=== PATIENT | male | born 1985 | race Caucasian/White ===

== ENCOUNTER 2018-03-22 05:51 | Emergency (ER) | payer OTHER ==
[2018-03-22] MEDS ORDERED: Sodium Chloride 0.9% 10 ML Syringe FLUSH PRN (06:18)
[2018-03-22] MEDS ORDERED: Morphine 4 MG/ML Syringe IVPUSH PRN (06:18)
[2018-03-22] MEDS ORDERED: Sodium Chloride 0.9% 1,000 ML IV ONE (06:18)
[2018-03-22] MEDS ORDERED: Ketorolac 30 MG/ML SDV IVPUSH ONE (06:18)
--- NOTE | 2018-03-22 06:26 | EDM.PDOC ---
<Eleazar Burk A - Last Filed: 03/22/18 06:34> ED HPI GENERAL MEDICAL PROBLEM - General Chief Complaint: Back Pain or Injury Stated Complaint: VOMMITING BLOOD RIGHT SIDE BACK PAIN AND IN TEST Time Seen by Provider: 03/22/18 05:58 Source of Information: Reports: Patient History Limitations: Reports: No Limitations - History of Present Illness INITIAL COMMENTS - FREE TEXT/NARRATIVE: 32 y/o M with fever, R flank pain, cough, and myalgias. States he's been feeling ill x 1 day. Symptoms started fairly suddenly yesterday. His main complaint is R flank pain, sharp, severe, radiates towards his groin, worse with movement, better when lying still. No provoking factor. No hx similar symptoms previously. Pain is currently severe. Hasn't taken anything for pain. He does do heavy lifting at his work in the [employer] but doesn't recall an injury. He also states that he is urinating less than usual and his urine has an odd smell to it. No actual dysuria or hematuria. Also has pain in his testicles. No scrotal swelling. No penile discharge. Pain is moderate. Also has cough, productive of blood tinged sputum x 1 day. No SOB. Mild substernal chest discomfort with inspiration. No lower extremity swelling or pain. right flank/throat/testicles Pain Score (Numeric/FACES): 8 - Related Data Allergies Allergy/AdvReac Type Severity Reaction Status Date / Time No Known Allergies Allergy Verified 03/22/18 06:06 Home Meds: Home Meds Orphenadrine [Norflex] 1 tab PO Q12H PRN #10 tab.er 03/22/18 [Rx] Past Medical History - Past Health History Medical/Surgical History: Denies Medical/Surgical History Social & Family History - Family History Family Medical History: Noncontributory - Tobacco Use Smoking Status *Q: Never Smoker Second Hand Smoke Exposure: No - Caffeine Use Caffeine Use: Reports: None - Recreational Drug Use Recreational Drug Use: No ED EXAM, UPPER BACK/NECK PAIN - Physical Exam Exam: See Below Exam Limited By: No Limitations General Appearance: Alert, WD/WN, Moderate Distress Eye Exam: Bilateral Eye: Normal Inspection Ears Exam: Normal External Exam Nose Exam: Normal Inspection Throat/Mouth Exam: Normal Inspection, Normal Oropharynx, Normal Voice, No Airway Compromise Head Exam: Atraumatic, Normocephalic Neck Exam: Full Range of Motion Cardiovascular/Respiratory: Regular Rate, Rhythm, Normal Peripheral Pulses, Normal Breath Sounds, No Respiratory Distress GI/Abdominal: Soft, Non-Tender, No Distention. No: Rebound (Male) Exam: Normal Inspection, Circumcised, Scrotum Tenderness (L), Scrotum Tenderness (R), Testicular Tenderness (L), Testicular Tenderness (R). No: Scrotal Swelling, Urethral Discharge Back Exam: Normal Inspection, CVA Tenderness (R), Other (skin normal, no palpable mass). No: CVA Tenderness (L), Vertebral Tenderness Extremities: Normal Inspection Neurologic: No Motor/Sensory Deficits, Alert, Normal Mood/Affect, Oriented x 3 Psychiatric: Normal Affect, Normal Mood Skin Exam: Normal Color, Warm/Dry Course - Vital Signs Last Recorded V/S: Last Vital Signs Temp 38.1 C 03/22/18 08:29 Pulse 86 03/22/18 08:29 Resp 16 03/22/18 08:29 BP 101/44 L 03/22/18 08:29 Pulse Ox 94 L 03/22/18 08:29 - Orders/Labs/Meds Orders: Active Orders 24 hr Category Date Time Status Peripheral IV Care [RC] . DIRECTED Care 03/22/18 06:18 Active Peripheral IV Care [RC] . DIRECTED Care 03/22/18 06:18 Active CULTURE BLOOD [BC] Stat Lab 03/22/18 07:25 Received CULTURE BLOOD [BC] Stat Lab 03/22/18 07:35 Received Morphine Med 03/22/18 06:18 Active 4 mg IVPUSH Q2H PRN Orphenadrine [Norflex] Med 03/22/18 09:43 Stat 100 mg PO ONETIME STA Sodium Chloride 0.9% [Saline Flush] Med 03/22/18 06:18 Active 10 ml FLUSH ASDIRECTED PRN Blood Culture x2 Reflex Set [OM.PC] Stat Oth 03/22/18 06:18 Ordered Peripheral IV Insertion Adult [OM.PC] Routine Oth 03/22/18 06:18 Ordered Medication Orders Morphine Sulfate (Morphine) 4 mg IVPUSH Q2H PRN PRN Reason: Pain Last Admin: 03/22/18 06:34 Dose: 4 mg Sodium Chloride (Saline Flush) 10 ml FLUSH ASDIRECTED PRN PRN Reason: Keep Vein Open Last Admin: 03/22/18 06:34 Dose: 10 ml Labs: Laboratory Tests 03/22/18 03/22/18 03/22/18 Range/Units 06:40 06:40 06:45 WBC 11.37 H (4.23-9.07) K/mm3 RBC 5.09 (4.63-6.08) M/mm3 Hgb 13.9 (13.7-17.5) gm/L Hct 42.2 (40.1-51.0) % MCV 82.9 (79.0-92.2) fl MCH 27.3 (25.7-32.2) pg MCHC 32.9 (32.2-35.5) g/dl RDW Std Deviation 44.3 H (35.1-43.9) fL Plt Count 301 (163-337) K/mm3 MPV 9.7 (9.4-12.3) fl Neut % (Auto) 87.3 H (34.0-67.9) % Lymph % (Auto) 6.0 L (21.8-53.1) % [place] % (Auto) 5.6 (5.3-12.2) % Eos % (Auto) 0.8 (0.8-7.0) Baso % (Auto) 0.2 (0.1-1.2) % Neut # (Auto) 9.93 H (1.78-5.38) K/mm3 Lymph # (Auto) 0.68 L (1.32-3.57) K/mm3 [place] # (Auto) 0.64 (0.30-0.82) K/mm3 Eos # (Auto) 0.09 (0.04-0.54) K/mm3 Baso # (Auto) 0.02 (0.01-0.08) K/mm3 Manual Slide Review Normal smear Sodium 137 (136-145) mEq/L Potassium 4.2 (3.5-5.1) mEq/L Chloride 103 (98-107) mEq/L Carbon Dioxide 24 (21-32) mEq/L Anion Gap 14.2 (5-15) BUN 20 H (7-18) mg/dL Creatinine 1.4 H (0.7-1.3) mg/dL Est Cr Clr Drug Dosing 81.43 mL/min Estimated GFR (MDRD) 59 (>60) mL/min BUN/Creatinine Ratio 14.3 (14-18) Glucose 101 (74-106) mg/dL Lactic Acid (0.4-2.0) mmol/L Calcium 9.1 (8.5-10.1) mg/dL Magnesium 1.3 L (1.8-2.4) mg/dl Total Bilirubin 0.5 (0.2-1.0) mg/dL AST 31 (15-37) U/L ALT 42 (16-63) U/L Alkaline Phosphatase 72 (46-116) U/L Total Protein 7.4 (6.4-8.2) g/dl Albumin 3.9 (3.4-5.0) g/dl Globulin 3.5 gm/dL Albumin/Globulin Ratio 1.1 (1-2) Urine Color Yellow (Yellow) Urine Appearance Clear (Clear) Urine pH 8.5 H (5.0-8.0) Ur Specific [place] 1.020 (1.005-1.030) Urine Protein Negative (Negative) Urine Glucose (UA) Negative (Negative) Urine Ketones Negative (Negative) Urine Occult Blood Negative (Negative) Urine Nitrite Negative (Negative) Urine Bilirubin Negative (Negative) Urine Urobilinogen 0.2 (0.2-1.0) Ur Leukocyte Esterase Negative (Negative) Urine RBC Not seen (0-5) /hpf Urine WBC 0-5 (0-5) /hpf Ur Epithelial Cells Not seen (0-5) /hpf Urine Bacteria Not seen (FEW) /hpf Urine Mucus Not seen (FEW) /hpf 03/22/18 Range/Units 07:25 WBC (4.23-9.07) K/mm3 RBC (4.63-6.08) M/mm3 Hgb (13.7-17.5) gm/L Hct (40.1-51.0) % MCV (79.0-92.2) fl MCH (25.7-32.2) pg MCHC (32.2-35.5) g/dl RDW Std Deviation (35.1-43.9) fL Plt Count (163-337) K/mm3 MPV (9.4-12.3) fl Neut % (Auto) (34.0-67.9) % Lymph % (Auto) (21.8-53.1) % [place] % (Auto) (5.3-12.2) % Eos % (Auto) (0.8-7.0) Baso % (Auto) (0.1-1.2) % Neut # (Auto) (1.78-5.38) K/mm3 Lymph # (Auto) (1.32-3.57) K/mm3 [place] # (Auto) (0.30-0.82) K/mm3 Eos # (Auto) (0.04-0.54) K/mm3 Baso # (Auto) (0.01-0.08) K/mm3 Manual Slide Review Sodium (136-145) mEq/L Potassium (3.5-5.1) mEq/L Chloride (98-107) mEq/L Carbon Dioxide (21-32) mEq/L Anion Gap (5-15) BUN (7-18) mg/dL Creatinine (0.7-1.3) mg/dL Est Cr Clr Drug Dosing mL/min Estimated GFR (MDRD) (>60) mL/min BUN/Creatinine Ratio (14-18) Glucose (74-106) mg/dL Lactic Acid 0.8 (0.4-2.0) mmol/L Calcium (8.5-10.1) mg/dL Magnesium (1.8-2.4) mg/dl Total Bilirubin (0.2-1.0) mg/dL AST (15-37) U/L ALT (16-63) U/L Alkaline Phosphatase (46-116) U/L Total Protein (6.4-8.2) g/dl Albumin (3.4-5.0) g/dl Globulin gm/dL Albumin/Globulin Ratio (1-2) Urine Color (Yellow) Urine Appearance (Clear) Urine pH (5.0-8.0) Ur Specific [place] (1.005-1.030) Urine Protein (Negative) Urine Glucose (UA) (Negative) Urine Ketones (Negative) Urine Occult Blood (Negative) Urine Nitrite (Negative) Urine Bilirubin (Negative) Urine Urobilinogen (0.2-1.0) Ur Leukocyte Esterase (Negative) Urine RBC (0-5) /hpf Urine WBC (0-5) /hpf Ur Epithelial Cells (0-5) /hpf Urine Bacteria (FEW) /hpf Urine Mucus (FEW) /hpf Meds: Medications Generic Name Dose Route Start Last Admin Trade Name Freq PRN Reason Stop Dose Admin Morphine Sulfate 4 mg 03/22/18 06:18 03/22/18 06:34 Morphine IVPUSH 4 mg Q2H PRN Administration Pain Sodium Chloride 10 ml 03/22/18 06:18 03/22/18 06:34 Saline Flush FLUSH 10 ml ASDIRECTED PRN Administration Keep Vein Open Discontinued Medications Generic Name Dose Route Start Last Admin Trade Name Freq PRN Reason Stop Dose Admin Hydromorphone HCl 1 mg 03/22/18 07:50 03/22/18 07:57 Dilaudid IVPUSH 03/22/18 07:51 Not Given ONETIME STA Hydromorphone HCl 1 mg 03/22/18 07:55 03/22/18 08:00 Dilaudid IVPUSH 03/22/18 07:56 1 mg ONETIME ONE Administration Hydromorphone HCl Confirm 03/22/18 07:54 03/22/18 07:57 Dilaudid Administered 03/22/18 07:55 Not Given Dose 1 mg .ROUTE .STK-MED ONE Sodium Chloride 1,000 mls @ 1,000 mls/hr 03/22/18 06:18 03/22/18 06:34 Normal Saline IV 03/22/18 07:17 1,000 mls/hr ONETIME ONE Administration Magnesium Sulfate 2 gm/ Premix 50 mls @ 50 mls/hr 03/22/18 07:47 03/22/18 08: 03 IV 03/22/18 08:46 50 mls/hr ONETIME ONE Administration Ketorolac Tromethamine 30 mg 03/22/18 06:18 03/22/18 06:34 Toradol IVPUSH 03/22/18 06:19 30 mg ONETIME ONE Administration Departure - Departure Disposition: Home, Self-Care 01 Clinical Impression: Flank pain, Abdominal pain, Cough, Hypomagnesemia - Discharge Information Referrals: Adelaida Sewell PA [Phys[employer]] - Forms: ED Department Discharge, ED Return to Work/School Form Additional Instructions: You were seen in the emergency room for right flank pain, fever, cough, and dark urine. Workup in the ER included blood work, 2 sets of blood cultures, a urinalysis, a chest x-ray, and a CT scan of your abdomen and pelvis. With the exception of finding your magnesium level low, your entire workup was unremarkable, and does not explain the symptoms that you had. You were given IV magnesium replacement in the ER. It is possible that your pain is due to muscle spasms. He has been started on the muscle relaxant Norflex. A prescription for Norflex has been sent to the [facility], [address] located just south and across the [address] from [facility]. Take one tablet of Norflex every 12 hours, starting this evening, as prescribed. In addition to Norflex, you may take [id number] ibuprofen, 2-3 tablets ( 400-600 mg) every 8 hours, with food, as needed for discomfort. If Norflex and ibuprofen do not improve your symptoms, please follow-up with Adelaida Sewell in the clinic, for further evaluation. If any other problems, please do not hesitate to return to the ER. - My Orders Last 24 Hours: My Active Orders 03/22/18 09:43 Orphenadrine [Norflex] 100 mg PO ONETIME STA - Assessment/Plan Last 24 Hours: My Active Orders 03/22/18 09:43 Orphenadrine [Norflex] 100 mg PO ONETIME STA <Orion Gr - Last Filed: 03/22/18 09:51> ED ROS GENERAL - Review of Systems Review Of Systems: ROS reveals no pertinent complaints other than HPI. Course - Re-Assessments/Exams Free Text/Narrative Re-Assessment/Exam: 03/22/18 07:48 2-view chest radiograph appears to be grossly normal. Cardiac silhouette is within normal limits. No pulmonary vascular congestion. No pleural effusions. No focal infiltrate. No pneumothorax. Formal read per the Radiologist pending. The patient's magnesium level has returned significantly depressed at 1.3. I have ordered a 2 g Mg-rider. The patient's lactic acid level is still pending. The patient has gone for CT scan, however, results are still pending. The patient is requesting more pain medication. I have ordered 1 mg Dilaudid. 03/22/18 07:53 CT of the abdomen and pelvis without contrast is read by Dr. Christensen as: 1. Increased stool throughout the colon. 2. Spondylolytic defects at L5-S1. 3. Renal calculi as noted above. No ureteral dilatation or ureteral stone is seen. 4. Nothing acute is seen on CT study of the abdomen and pelvis. 03/22/18 08:25 Despite just receiving 1 mg IV Dilaudid, the patient is still telling Sushila RN that his pain is a 9 out of 10. His workup, with the exception of hypomagnesemia , found only increased stool throughout the colon, and no other explanation for his pain. I don't believe further pain medication is indicated. The Mg-rider will take another 45 minutes to infuse, after which I will discharge the patient home. 03/22/18 09:43 Test results discussed with the patient. Today's workup is grossly unremarkable , and does not explain the constellation of symptoms that the patient presented with. It is possible that the patient has a viral illness with myalgias. It is possible the patient is suffering from muscle spasms. I recommended that we treat the patient with a muscle relaxant, and that if that did not work, that he could follow-up with a PCP that I could refer him to, for further evaluation. The patient agreed. The patient asked for a note for work for not only today but tomorrow, as well. While I can provide the patient with a note for today, I do not see medical justification for note for tomorrow, given the negative workup. I requested that the patient follow-up with the PCP today or tomorrow if he really needed a note for tomorrow. Departure - Departure Time of Disposition: 09:45 Condition: Good - Discharge Information *PRESCRIPTION DRUG MONITORING PROGRAM REVIEWED*: No *COPY OF PRESCRIPTION DRUG MONITORING REPORT IN PATIENT CLAIRE: No
[2018-03-22] MEDS ORDERED: Magnesium Sulfate/Water 2 GM in Premix Bag 1 BAG IV ONE (07:47)
--- NOTE | 2018-03-22 07:49 | CT ---
CT abdomen and pelvis Technique: Multiple axial sections were obtained from above the dome of the diaphragm inferiorly through the pubic symphysis. Intravenous and oral contrast not utilized. Study has been performed as a ureteral stone protocol. Comparison: No prior renal imaging is available. Findings: Ureters show no dilatation. No abnormal calcifications are seen along the course of the ureters. Small nonobstructing calculus is noted within the inferior right kidney measuring less than 3 mm. Calcification is seen within the mid to lower left kidney which appears to be more in a cortical location rather than representing renal stone. 2 very small calcifications which are felt compatible with nonobstructing calculi are seen within the mid to upper right kidney measuring less than 3 mm. Small portion of the visualized lung bases are clear. Noncontrast appearance of the liver and spleen appears within normal limits. Gallbladder contains no calcified gallstones. Adrenal glands show no nodule. Pancreas appears within normal limits. Aorta shows no aneurysmal dilatation. No retroperitoneal adenopathy or mesenteric abnormalities are seen. No pelvic mass or adenopathy is seen. No free fluid or inflammatory change is seen. Diffuse increased stool is noted throughout the colon. Appendix is felt to be visualized and is normal in size. Bone window settings were reviewed which shows bilateral spondylolytic defects at L5-S1 without spondylolisthesis seen at this time. Impression: 1. Increased stool throughout the colon. 2. Spondylolytic defects at L5-S1. 3. Renal calculi as noted above. No ureteral dilatation or ureteral stone is seen. 4. Nothing acute is seen on CT study of the abdomen and pelvis. Diagnostic code #2
[2018-03-22] MEDS ORDERED: HYDROmorphone 0.5 MG/0.5 ML SYRINGE IVPUSH STA (07:50)
[2018-03-22] MEDS ORDERED: HYDROmorphone 1 MG/ML Syringe ONE (07:54)
[2018-03-22] MEDS ORDERED: HYDROmorphone 1 MG/ML Syringe IVPUSH ONE (07:55)
--- NOTE | 2018-03-22 08:52 | CR ---
Chest: Two views of the chest were obtained. Comparison: No prior chest x-ray. Heart size and mediastinum are normal. Lungs are clear. Bony structures are unremarkable. Impression: 1. Nothing acute is seen on two-view chest x-ray. Diagnostic code #1
[2018-03-22] MEDS ORDERED: Orphenadrine 100 MG Tab.ER PO STA (09:43)
== END 2018-03-22 10:05 | disposition home or self-care (01) ==
LOC: JD.ED 05:51
DX: R10.9 Unspecified abdominal pain (principal); E83.42 Hypomagnesemia; R05 Cough; M79.10 Myalgia, unspecified site
CPT/HCPCS: 36415; 71046; 74176; 80053; 81001; 83605; 83735; 85025; 87040; 96361; 96365; 96375; 99285; A9270; J1170; J1885; J2270; J7040; J7050; 99284; J3475